=== PATIENT | female | born 1955 | race Caucasian/White ===

== ENCOUNTER 2024-03-03 15:11 | Inpatient (IN) ==
[2024-03-03] MEDS ORDERED: IOPAMIDOL 100 ML BOTTLE IV ONE (15:12)
[2024-03-03] MEDS: 0.9 % SODIUM CHLORIDE 1,000 ML IV ONE ×2 (16:26→18:18)
[2024-03-03 16:53] LABS: Basophils # (Auto) 0.02 K/mcL (0.00-0.30); Basophils % (Auto) 0.1 % (0.0-2.0); Eosinophils # (Auto) 0.03 K/mcL (0.00-0.70); Eosinophils % (Auto) 0.1 % (0.0-7.0); Hematocrit 38.4 % (34.1-44.9); Hemoglobin 11.6 g/dL (11.2-15.7); Lymphocytes # (Auto) 0.45 K/mcL (1.50-4.80); Lymphocytes % (Auto) 1.9 % (15.5-49.0); Mean Cell Volume 94.8 fL (80.0-100.0); Mean Corpuscular HGB Conc 30.2 g/dL (31.0-36.0); Monocytes # (Auto) 1.21 K/mcL (0.10-0.90); Monocytes % (Auto) 5.2 % (1.0-12.0); Neutrophils % (Auto) 92.2 % (38.0-78.0); Platelet Count 244 K/mcL (140-440); RBC 4.05 M/mcL (3.59-5.38); Red Cell Distribution Width 15.5 % (11.5-14.5); WBC 23.5 K/mcL (4.5-11.0)
[2024-03-03 17:05] LABS: ALT/SGPT < 5 U/L (<40); AST/SGOT 24 U/L (<32); Albumin 3.3 gm/dL (3.2-5.2); Alkaline Phosphatase 101 U/L (39-117); Bilirubin,Total 0.6 mg/dL (0.1-1.0); Blood Urea Nitrogen 17 mg/dL (8-23); Calcium 9.5 mg/dL (8.6-10.4); Carbon Dioxide 25 mmol/L (22-30); Chloride 98 mmol/L (96-108); Globulin 3.2 gm/dL (2.2-3.7); Glomerular Filtration Rate 75; Glucose 111 mg/dL (70-105)
[2024-03-03] MEDS: cefTRIAXone 2 GM in DEXTROSE 5% IN WATER 50 ML IV ONE (17:20)
[2024-03-03] MEDS: ACETAMINOPHEN 1,000 MG/100 ML BAG IV ONE (18:18)
[2024-03-03] MEDS: VANCOMYCIN 1,000 MG in 0.9 % SODIUM CHLORIDE 250 ML IV ONE (21:03)
[2024-03-03] MEDS: NOREPINEPHRINE BITARTRATE 8 MG in 0.9 % SODIUM CHLORIDE 242 ML IV SCH (21:13)
[2024-03-03] MEDS: NOREPINEPHRINE BITARTRATE 4 MG/4 ML VIAL IV ONE (21:13)
[2024-03-03] MEDS: 0.9 % SODIUM CHLORIDE 250 ML IV SCH (21:17)
[2024-03-03 21:51] LABS: Appearance,Urine Clear (Clear); Bacteria,Urine Many /hpf (0); Bilirubin,Urine Negative (Negative); Color,Urine Yellow; Culture Indicated,Urine Yes; Glucose,Urine (UA) Negative (Negative); Ketones,Urine Negative (Negative); Leukocyte Esterase,Urine Large /uL (Negative); Nitrate,Urine Positive (Negative); PH,Urine 6.5 (5.0-9.0); Protein,Urine Negative (Negative); Specific Gravity,Urine 1.015 (1.000-1.035); Urine Blood Trace-intact ery/mcL (Negative); Urine RBC 0 /hpf (0-3); Urine Squamous Epithelial Cell 1 /hpf (0-4); Urine WBC 80 /hpf (0-4); Urobilinogen,Urine Normal
[2024-03-03] MEDS ORDERED: VANCOMYCIN PER PHARMACY IV SCH (23:20)
[2024-03-03] MEDS ORDERED: LACTULOSE 20 GM/30 ML ORAL.SOL PO PRN (23:57)
[2024-03-03] MEDS ORDERED: SENNOSIDES 1 TABLET PO PRN (23:57)
[2024-03-04] MEDS: PIPERACILLIN SODIUM/TAZOBACTAM 4.5 GM in DEXTROSE 5% IN WATER 50 ML IV SCH (01:14)
[2024-03-04] MEDS: CLINDAMYCIN IN 0.9 % SOD CHLOR 600 MG/50 ML BAG IV SCH (01:43)
[2024-03-04] MEDS: LACTATED RINGERS 1,000 ML IV SCH (01:43)
[2024-03-04] MEDS: HYDROcodone/APAP 5/325MG TABLET PO PRN (01:51)
[2024-03-04] MEDS: ACETAMINOPHEN 325 MG TABLET PO PRN (05:50)
[2024-03-04] MEDS: ACETAMINOPHEN 325 MG TABLET PO ONE (08:17)
[2024-03-04] MEDS: HYDROcodone/APAP 5/325MG TABLET PO ONE (08:17)
[2024-03-04] MEDS: 0.9 % SODIUM CHLORIDE 10 ML SYRINGE IV SCH (08:17)
[2024-03-04] MEDS: ONDANSETRON 4 MG/2 ML VIAL IV PRN (08:57)
[2024-03-04 09:13] LABS: ALT/SGPT 7 U/L (<40); AST/SGOT 30 U/L (<32); Albumin 2.8 gm/dL (3.2-5.2); Albumin/Globulin Ratio 0.9 (1.0-2.3); Alkaline Phosphatase 90 U/L (39-117); Bilirubin,Direct 0.3 mg/dL (<0.3); Bilirubin,Total 0.5 mg/dL (0.1-1.0); Blood Urea Nitrogen 20 mg/dL (8-23); Calcium 8.5 mg/dL (8.6-10.4); Carbon Dioxide 21 mmol/L (22-30); Chloride 97 mmol/L (96-108); Globulin 3.2 gm/dL (2.2-3.7); Glomerular Filtration Rate 57; Glucose 92 mg/dL (70-105); Lactate Dehydrogenase 261 U/L (135-225); Phosphorous 3.5 mg/dL (2.5-4.5); Triglycerides 72 mg/dL (<150)
[2024-03-04] MEDS: 0.9 % SODIUM CHLORIDE 1,000 ML IV SCH (09:18)
[2024-03-04] MEDS: ENOXAPARIN 40 MG/0.4 ML SYRINGE SQ SCH (09:28)
[2024-03-04] MEDS: VANCOMYCIN 1,500 MG in 0.9 % SODIUM CHLORIDE 500 ML IV SCH (09:28)
[2024-03-04 09:35] LABS: Basophils # (Auto) 0.11 K/mcL (0.00-0.30); Basophils % (Auto) 0.3 % (0.0-2.0); Eosinophils # (Auto) 0 K/mcL (0.00-0.70); Eosinophils % (Auto) 0 % (0.0-7.0); Hematocrit 38.7 % (34.1-44.9); Hemoglobin 10.7 g/dL (11.2-15.7); Lymphocytes # (Auto) 0.77 K/mcL (1.50-4.80); Lymphocytes % (Auto) 2.4 % (15.5-49.0); Mean Cell Volume 102.4 fL (80.0-100.0); Mean Corpuscular HGB Conc 27.6 g/dL (31.0-36.0); Mean Platelet Volume 9.7 fL (8.8-12.5); Monocytes # (Auto) 0.64 K/mcL (0.10-0.90); Neutrophils % (Auto) 94.1 % (38.0-78.0); Platelet Count 215 K/mcL (140-440); RBC 3.78 M/mcL (3.59-5.38); Red Cell Distribution Width 16.2 % (11.5-14.5); WBC 32.4 K/mcL (4.5-11.0)
[2024-03-04] MEDS: PIPERACILLIN SODIUM/TAZOBACTAM 4.5 GM in 0.9 % SODIUM CHLORIDE 100 ML IV SCH (10:05)
[2024-03-04] MEDS: 0.9 % SODIUM CHLORIDE 500 ML IV ONE (10:05)
[2024-03-04] MEDS: DOCUSATE SODIUM 100 MG CAPSULE PO SCH (10:07)
== END 2024-03-04 09:52 | disposition short-term general hospital (02) | DRG 862 ==
LOC: ED 15:11 → ICU 23:05
PROVIDERS: ADMIT Internal Medicine; ATTEND Internal Medicine